=== PATIENT | female | born 1960 | race Caucasian/White ===

== ENCOUNTER 2016-07-24 14:13 | Outpatient (CLI) | payer OTHER ==
[2016-07-24 14:32] LABS: BASOPHILS % 0.6 (0.0-1.5); EOSINOPHILS % 6.4 % (0.0-6.8); MONOCYTES # 0.3 # k/uL (0.0-0.9); MONOCYTES % 7.8 % (0.0-11.0); NEUTROPHILS # 2.3 # k/uL (1.4-7.7)
[2016-07-24 14:58] LABS: eGFR (African) > 60; eGFR (Non-African) > 60
== END 2016-07-24 14:14 ==
LOC: LAB 14:13
PROVIDERS: ATTEND Dermatology
DX: Z51.81 Encounter for therapeutic drug level monitoring (principal); Z79.899 Other long term (current) drug therapy
CPT/HCPCS: 36415; 80053; 85025; 86480

== ENCOUNTER 2016-10-16 11:36 | Outpatient (CLI) | payer OTHER ==
[2016-10-16 12:06] LABS: BASOPHILS % 0.7 (0.0-1.5); EOSINOPHILS % 2.8 % (0.0-6.8); MEAN CORPUSCULAR VOLUME 95.2 fl (80.0-100.0); MONOCYTES % 5.2 % (0.0-11.0); NEUTROPHILS # 3.1 # k/uL (1.4-7.7)
[2016-10-16 12:35] LABS: eGFR (African) > 60; eGFR (Non-African) > 60
== END 2016-10-16 11:37 ==
LOC: RT 11:36
PROVIDERS: ATTEND Family Medicine
DX: R06.09 Other forms of dyspnea (principal)
CPT/HCPCS: 36415; 80048; 85025

== ENCOUNTER 2016-10-30 14:27 | Outpatient (CLI) | payer OTHER | END 2016-10-30 14:30 | LOC: RT 14:27 | PROVIDERS: ATTEND Family Medicine | DX: R06.09 Other forms of dyspnea (principal) ==

== ENCOUNTER 2017-04-08 15:56 | Outpatient (CLI) | payer OTHER | END 2017-04-08 15:58 | LOC: LAB 15:56 | PROVIDERS: ATTEND Family Medicine | DX: E83.52 Hypercalcemia (principal) | CPT/HCPCS: 36415; 82310; 83970 ==